=== PATIENT | female | born 1960 | race Two or more races ===

== ENCOUNTER 2022-09-23 09:04 | Emergency (ER) | payer MEDICAID, MEDICARE ==
[~2022-09-23] VITALS: Ht 162.6 cm; Wt 77.7 kg
[~2022-09-23 09:04] MED LIST: ALBU18; ALPR1TAB2; BUSP5TAB22; DULO60CA41; HYDR-2595; METH-1181; QVAR; TRAM50TA2
[2022-09-23 09:15] VITALS: BP 127/68
[2022-09-23] MEDS ORDERED: KETOROLAC TROMETH 60MG/2ML VIAL IM ONE (10:15)
[2022-09-23] MEDS ORDERED: HYDR-4798 PO (10:44)
[2022-09-23] MEDS ORDERED: ALPR0.5T PO (10:44)
== END 2022-09-23 11:11 | disposition home or self-care (01) ==
LOC: ER 09:04
DX: M79.7 Fibromyalgia (principal); G89.29 Other chronic pain; M54.59 Other low back pain; F41.9 Anxiety disorder, unspecified; J44.9 Chronic obstructive pulmonary disease, unspecified; F32.9 Major depressive disorder, single episode, unspecified; Z76.0 Encounter for issue of repeat prescription; Z79.899 Other long term (current) drug therapy; Z90.710 Acquired absence of both cervix and uterus; Z98.890 Other specified postprocedural states; Z87.891 Personal history of nicotine dependence
CPT/HCPCS: 96372; 99283; J1885